=== PATIENT | female | born 1990 | race Caucasian/White ===

== ENCOUNTER 2018-10-02 11:54 | Outpatient (CLI) | payer OTHER | END 2018-10-02 11:55 | disposition home or self-care (01) | LOC: C.LAB 11:54 | DX: J38.1 Polyp of vocal cord and larynx (principal) ==

== ENCOUNTER 2018-10-08 09:03 | Day surgery (SDC) | payer OTHER ==
[2018-09-30 10:38] VITALS: BMI 17.7
[~2018-10-08 09:03] MED LIST: Dextrose 5%/0.45% NS 1,000 ML IV SCH; Morphine 10 mg/5 ml Oral Soln PO PRN
[2018-10-08] MEDS ORDERED: Midazolam 2 MG/2 ML VIAL ONE (11:37)
[2018-10-08] MEDS ORDERED: Propofol 10 mg/ml Inj (20 ML) ONE ×2 (11:37→12:06)
[2018-10-08] MEDS ORDERED: ceFAZolin 1 gm in NS 1 GM/100 ML BAG IVPB ONE (11:41)
[2018-10-08] MEDS ORDERED: HYDROmorphone 0.5 mg/0.5 ml ISec IVP PRN (11:49)
[2018-10-08] MEDS ORDERED: Racepinephrine 2.25% Inhal Soln 0.5 ML UD NEB PRN (11:49)
[2018-10-08] MEDS ORDERED: Dexamethasone 4 mg/1 ml IVP PRN (11:49)
[2018-10-08] MEDS ORDERED: Albuterol 0.083% Inhal Sol (2.5 mg/3 mL) UD INH PRN (12:30)
[2018-10-08 13:19] VITALS: O2SAT 100
[2018-10-08 14:17] VITALS: BP 113/63; PULSE 70; RESP 18; TEMP 98
--- NOTE | 2018-10-09 00:32 | OP ---
PROCEDURE DATE: 10/08/2018 PREOPERATIVE DIAGNOSIS: Left vocal cord polyp. POSTOPERATIVE DIAGNOSIS: Left vocal cord polyp. PROCEDURE: Microdirect laryngoscopy with removal of right vocal cord polyp. SIGNIFICANT FINDINGS: Left vocal cord polyp. DESCRIPTION OF PROCEDURE: The patient was brought into the room, placed in the supine position. Anesthesia initiated through an ET tube. Shoulder roll was placed, neck extended. The patient was draped in the usual manner. Tooth guard was placed over the upper teeth in order to protect them and was removed at the end the case. Direct laryngoscope was inserted into the oral cavity, passed to the oropharynx, hypopharynx. The base of tongue, vallecula, epiglottis, AE folds, false cords, true cords, arytenoids, piriform sinuses, pharyngeal hudson were brought into view. A left vocal cord lesion was noted. The direct laryngoscope was suspended on the [employer] usual manner while viewing the left vocal cord polyp. Microscope was brought into position and used to view the left vocal cord polyp. Micro scissors and micro instruments were used to dissect the vocal cord polyp off the vocal cord preserving as much mucosa as possible. Bleeding was controlled using cold water irrigation. Microscope was taken off out of position. The direct laryngoscope was taken off suspension and removed. The tooth guard was removed. The patient was taken off anesthesia and taken to recovery room in stable manner. Chad Scott MD [facility]
== END 2018-10-08 15:36 | disposition home or self-care (01) ==
LOC: C.SDS 09:03
PROVIDERS: ATTEND Otolaryngology
DX: J38.1 Polyp of vocal cord and larynx (principal)
CPT/HCPCS: 31541; 88305; 94640; J0690; J1100; J2250; J2704; J3010; J7040